=== PATIENT | female | born 1925 | race Caucasian/White ===

== ENCOUNTER → 2016-08-19 | Outpatient (CLI) | payer MEDICARE, OTHER ==
[~2016-08-19] MED LIST: ACET-1757 PO; ACID1TAB3 PO; ALLO100T64 PO; ALLO300T42; AMLO5TAB4 PO; ASPI-496 PO; ASPI-515 PO; ASPI325T80 PO; ATOR80TA75 PO; AZIT-14 PO; BUDE10.2; CARV3.1212 PO; CEFD300C2 PO; CEPH-376 PO; CIPR250T2 PO; CIPR500T3 PO; ERGO500017 PO; FERR325T20 PO; FLUT1AER INH; GABA100C8 PO; HYDR1TAB12 PO; INSU100C5 SQ-INSULIN; LEVO100C2; LOSARTIN; METH4TAB2 PO; OXYC5CAP4 PO; OXYC5TAB3 PO; PANT40TA3 PO; POTA20TA91 PO; SENN8.6T98 PO; VIT1TABL32 PO; [UNRECOGNIZED DRUG - REMARK] PO
== END | disposition home or self-care (01) ==
LOC: CFH 11:49
PROVIDERS: ATTEND Nurse Practitioner Primary Care
DX: I51.7 Cardiomegaly (principal); K46.9 Unspecified abdominal hernia without obstruction or gangrene
CPT/HCPCS: 71020

== ENCOUNTER → 2016-09-04 | Outpatient (CLI) | payer MEDICARE, OTHER | END | disposition home or self-care (01) | LOC: CFH 13:15 | PROVIDERS: ATTEND Internal Medicine Cardiovascular Disease | DX: I10 Essential (primary) hypertension (principal) | CPT/HCPCS: 93306 ==

== ENCOUNTER 2016-11-21 09:16 | Inpatient (IN) | payer MEDICARE, OTHER ==
[~2016-11-21] VITALS: Ht 165.1 cm; Wt 60.0 kg
[~2016-11-21 09:16] MED LIST changes: -AZIT-14 PO; +AZIT250T89 PO; -CEFD300C2 PO; +CEFD300C37 PO; +GABA-826 PO; -GABA100C8 PO
[2016-11-21] MEDS ORDERED: SODIUM CHLORIDE 0.9% 1,000ML IVBOLUS ONE (09:30)
[2016-11-21] MEDS ORDERED: SODIUM CHLORIDE FLUSH 10ML SYR IVF ONE (09:30)
[2016-11-21 10:21] LABS: ASPARTATE AMINO TRANSFERASE 8 U/L (15-37); BLOOD UREA NITROGEN 64 mg/dL (7-18)
[2016-11-21 10:49] LABS: DIFF TOTAL CELLS COUNTED 100 CELL DIFF
[2016-11-21 10:50] LABS: ANISOCYTOSIS 2+
[2016-11-21 10:51] LABS: OVALOCYTES 1+
[2016-11-21 10:53] LABS: MICROCYTOSIS 1+
[2016-11-21 10:54] LABS: VERIFY COUNTS? YES
[2016-11-21] MEDS ORDERED: SODIUM CHLORIDE 0.9% 1,000 ML IV ONE (13:40)
[2016-11-21] MEDS ORDERED: ONDANSETRON 2MG/ML, 2ML IVPush PRN (14:00)
[2016-11-21] MEDS ORDERED: hydrALAzine 20 MG/ML, 1ML IVPush PRN (14:00)
[2016-11-21] MEDS ORDERED: morphine SULFATE 10 MG/ML, 1ML IVPush PRN (14:00)
[2016-11-21 14:30] VITALS: BP 130/72
[2016-11-21] MEDS: CEFTRIAXONE PMX 1GM/50ML 50 ML IV SCH (16:00)
[2016-11-21] MEDS: PANTOPROZOLE 40MG TABLET PO SCH (16:00)
[2016-11-21] MEDS: HEPARIN 5,000 UNITS/ML, 1ML SQ SCH (16:01)
[2016-11-21] MEDS: FERROUS SULFATE 325 MG TABLET PO SCH (16:01)
[2016-11-21] MEDS: GABAPENTIN 100 MG CAPSULE PO SCH ×2 (16:01→21:28)
[2016-11-21] MEDS: CARVEDILOL 3.125 MG TABLET PO SCH (17:02)
[2016-11-21 19:21] VITALS: BP 120/73
[2016-11-21] MEDS: VIT A C PO SCH (21:00)
[2016-11-21] MEDS: LUTEIN PO SCH (21:00)
[2016-11-21] MEDS: [UNRECOGNIZED DRUG - OTHER] PO SCH (21:00)
[2016-11-21] MEDS: MINERALS PO SCH (21:00)
[2016-11-21] MEDS ORDERED: TEMAZEPAM 15 MG CAPSULE PO PRN (21:00)
[2016-11-21] MEDS: ATORVASTATIN 80 MG TABLET PO SCH (21:28)
[2016-11-22] MEDS: HEPARIN 5,000 UNITS/ML, 1ML SQ SCH ×3 (00:03→17:50)
[2016-11-22 02:46] VITALS: BP 128/63
[2016-11-22 05:34] LABS: BLOOD UREA NITROGEN 60 mg/dL (7-18)
[2016-11-22 05:47] LABS: ASPARTATE AMINO TRANSFERASE 7 U/L (15-37)
[2016-11-22] MEDS: CARVEDILOL 3.125 MG TABLET PO SCH ×2 (05:58→17:51)
[2016-11-22 07:21] VITALS: BP 103/64
[2016-11-22] MEDS: PANTOPROZOLE 40MG TABLET PO SCH ×2 (09:11→17:49)
[2016-11-22] MEDS: FERROUS SULFATE 325 MG TABLET PO SCH ×2 (09:11→17:49)
[2016-11-22] MEDS: GABAPENTIN 100 MG CAPSULE PO SCH ×3 (09:12→21:12)
[2016-11-22] MEDS: ASPIRIN 325 MG TABLET EC PO SCH (09:13)
[2016-11-22] MEDS: GUAIFENESIN ER 600 MG TABLET PO SCH ×2 (12:54→21:12)
[2016-11-22 14:55] VITALS: BP 121/64
[2016-11-22] MEDS: CEFTRIAXONE PMX 1GM/50ML 50 ML IV SCH (15:59)
[2016-11-22 19:54] VITALS: BP 112/66
[2016-11-22] MEDS: VIT A C PO SCH (21:00)
[2016-11-22] MEDS: LUTEIN PO SCH (21:00)
[2016-11-22] MEDS: [UNRECOGNIZED DRUG - OTHER] PO SCH (21:00)
[2016-11-22] MEDS: MINERALS PO SCH (21:00)
[2016-11-22] MEDS: ATORVASTATIN 80 MG TABLET PO SCH (21:12)
[2016-11-23] MEDS: HEPARIN 5,000 UNITS/ML, 1ML SQ SCH ×3 (00:20→17:10)
[2016-11-23 03:57] VITALS: BP 102/62
[2016-11-23 05:23] LABS: BLOOD UREA NITROGEN 54 mg/dL (7-18)
[2016-11-23] MEDS: CARVEDILOL 3.125 MG TABLET PO SCH ×2 (05:50→17:09)
[2016-11-23 07:42] VITALS: BP 122/62
[2016-11-23] MEDS: ASPIRIN 325 MG TABLET EC PO SCH (09:20)
[2016-11-23] MEDS: PANTOPROZOLE 40MG TABLET PO SCH ×2 (09:21→17:09)
[2016-11-23] MEDS: GUAIFENESIN ER 600 MG TABLET PO SCH ×2 (09:21→21:57)
[2016-11-23] MEDS: GABAPENTIN 100 MG CAPSULE PO SCH ×3 (09:21→21:57)
[2016-11-23] MEDS: FERROUS SULFATE 325 MG TABLET PO SCH ×2 (09:22→17:10)
[2016-11-23 13:30] VITALS: BP 125/61
[2016-11-23] MEDS: CEFTRIAXONE PMX 1GM/50ML 50 ML IV SCH (15:13)
[2016-11-23] MEDS: ACETAMINOPHEN 325 MG TABLET PO PRN (18:40)
[2016-11-23 19:54] VITALS: BP 128/66
[2016-11-23] MEDS: VIT A C PO SCH (21:00)
[2016-11-23] MEDS: [UNRECOGNIZED DRUG - OTHER] PO SCH (21:00)
[2016-11-23] MEDS: MINERALS PO SCH (21:00)
[2016-11-23] MEDS: LUTEIN PO SCH (21:00)
[2016-11-23] MEDS: ATORVASTATIN 80 MG TABLET PO SCH (21:57)
[2016-11-24] MEDS: HEPARIN 5,000 UNITS/ML, 1ML SQ SCH ×4 (00:05→23:40)
[2016-11-24 01:34] VITALS: BP 121/62
[2016-11-24 05:38] LABS: BLOOD UREA NITROGEN 52 mg/dL (7-18)
[2016-11-24] MEDS: CARVEDILOL 3.125 MG TABLET PO SCH ×2 (05:48→17:33)
[2016-11-24 07:29] VITALS: BP 106/59
[2016-11-24] MEDS: FERROUS SULFATE 325 MG TABLET PO SCH ×2 (08:23→17:33)
[2016-11-24] MEDS: PANTOPROZOLE 40MG TABLET PO SCH ×2 (08:23→17:33)
[2016-11-24] MEDS: ASPIRIN 325 MG TABLET EC PO SCH (08:23)
[2016-11-24] MEDS: GUAIFENESIN ER 600 MG TABLET PO SCH ×2 (08:23→22:24)
[2016-11-24] MEDS: GABAPENTIN 100 MG CAPSULE PO SCH ×3 (08:23→22:24)
[2016-11-24] MEDS: ACETAMINOPHEN 325 MG TABLET PO PRN ×2 (08:33→22:25)
[2016-11-24 13:40] VITALS: BP 125/73
[2016-11-24] MEDS: CEFTRIAXONE PMX 1GM/50ML 50 ML IV SCH (17:32)
[2016-11-24 19:18] VITALS: BP 129/78
[2016-11-24] MEDS: VIT A C PO SCH (21:00)
[2016-11-24] MEDS: MINERALS PO SCH (21:00)
[2016-11-24] MEDS: LUTEIN PO SCH (21:00)
[2016-11-24] MEDS: [UNRECOGNIZED DRUG - OTHER] PO SCH (21:00)
[2016-11-24] MEDS: ATORVASTATIN 80 MG TABLET PO SCH (22:24)
[2016-11-25 01:10] VITALS: BP 119/66
[2016-11-25] MEDS: CARVEDILOL 3.125 MG TABLET PO SCH (05:52)
[2016-11-25 07:59] VITALS: BP 115/62
[2016-11-25] MEDS: FERROUS SULFATE 325 MG TABLET PO SCH ×2 (09:20→16:18)
[2016-11-25] MEDS: HEPARIN 5,000 UNITS/ML, 1ML SQ SCH ×2 (09:20→16:18)
[2016-11-25] MEDS: ASPIRIN 325 MG TABLET EC PO SCH (09:20)
[2016-11-25] MEDS: GUAIFENESIN ER 600 MG TABLET PO SCH (09:20)
[2016-11-25] MEDS: GABAPENTIN 100 MG CAPSULE PO SCH ×2 (09:20→15:23)
[2016-11-25] MEDS: PANTOPROZOLE 40MG TABLET PO SCH ×2 (09:20→16:18)
[2016-11-25 13:52] VITALS: BP 138/65
[2016-11-25] MEDS: CEFTRIAXONE PMX 1GM/50ML 50 ML IV SCH (15:23)
[2016-11-25] MEDS ORDERED: TEMA15CA6 PO (15:43)
[2016-11-25] MEDS ORDERED: TRAM50TA2 PO (15:43)
[2016-11-25] MEDS ORDERED: CEFD300C37 PO (15:43)
[2016-11-25] MEDS ORDERED: GUAI600T22 PO (15:43)
[2016-11-25] MEDS ORDERED: LACT1CAP24 PO (15:44)
== END 2016-11-25 17:00 | DRG 871 ==
LOC: ED 10:11 → EDIP 10:49 → 3NE 12:15
PROVIDERS: ADMIT Hospitalist; ATTEND Hospitalist
DX: A41.51 Sepsis due to Escherichia coli [E. coli] (principal); N17.0 Acute kidney failure with tubular necrosis; N17.9 Acute kidney failure, unspecified; N39.0 Urinary tract infection, site not specified; I24.9 Acute ischemic heart disease, unspecified; I50.40 Unspecified combined systolic (congestive) and diastolic (congestive) heart failure; E03.9 Hypothyroidism, unspecified; E11.22 Type 2 diabetes mellitus with diabetic chronic kidney disease; I25.10 Atherosclerotic heart disease of native coronary artery without angina pectoris; I48.0 Paroxysmal atrial fibrillation; E11.51 Type 2 diabetes mellitus with diabetic peripheral angiopathy without gangrene; M10.9 Gout, unspecified; N18.3 Chronic kidney disease, stage 3 (moderate); W18.39XA Other fall on same level, initial encounter; I25.2 Old myocardial infarction; Z87.440 Personal history of urinary (tract) infections; Y93.89 Activity, other specified; Y92.89 Other specified places as the place of occurrence of the external cause; Y99.8 Other external cause status; Z66 Do not resuscitate
CPT/HCPCS: 36415; 71010; 80048; 80053; 81001; 82010; 82533; 83605; 83735; 84100; 84443; 85025; 87040; 87077; 87086; 87186; 87324; 89055; 93005; 99291; J0696; J1644; J7030

== ENCOUNTER 2017-04-01 20:03 | Inpatient (IN) | payer MEDICARE, OTHER ==
[~2017-04-01] VITALS: Ht 170.2 cm; Wt 63.1 kg
[~2017-04-01 20:03] MED LIST changes: -ALLO300T42; +ALLO300T80; +ATOR-2 PO; -ATOR80TA75 PO; +FERR325T18 PO; -FERR325T20 PO; +GUAI600T31 PO; +LACT1CAP24 PO; -LEVO100C2; +LEVO100C2 PO; +OXYC5CAP2 PO; -OXYC5CAP4 PO; +TEMA15CA6 PO; +TRAM50TA2 PO
[2017-04-01] MEDS ORDERED: POTA20TA89 PO (21:20)
[2017-04-01] MEDS ORDERED: ATOR40TA PO (21:20)
[2017-04-01] MEDS ORDERED: FURO20TA3 PO (21:20)
[2017-04-01] MEDS ORDERED: LEVO100T5 PO (21:20)
[2017-04-01] MEDS ORDERED: PANT40TA5 PO (21:20)
[2017-04-01] MEDS ORDERED: ASCO500T8 PO (21:20)
[2017-04-01] MEDS ORDERED: GABA300C10 PO (21:20)
[2017-04-01] MEDS ORDERED: OXYB5TAB7 PO (21:20)
[2017-04-01] MEDS ORDERED: SODIUM CHLORIDE FLUSH 10ML SYR IVF ONE (21:30)
[2017-04-01] MEDS ORDERED: SODIUM CHLORIDE 0.9% 1,000ML IVBOLUS ONE (21:30)
[2017-04-01 21:56] LABS: HEMATOCRIT 34.8 % (34.6-47.8); HEMOGLOBIN 11.7 g/dL (11.7-16.4); WHITE BLOOD COUNT 11.9 x10^3/uL (3.4-10)
[2017-04-01 22:08] LABS: ASPARTATE AMINO TRANSFERASE 15 U/L (15-37); BLOOD UREA NITROGEN 54 mg/dL (7-18)
[2017-04-01] MEDS ORDERED: CEFTRIAXONE PMX 1GM/50ML 50 ML IV ONE (22:30)
[2017-04-01] MEDS ORDERED: SODIUM CHLORIDE 0.9% 1,000 ML IV SCH (22:36)
[2017-04-01] MEDS ORDERED: CEFTRIAXONE PMX 1GM/50ML 50 ML ONE (22:55)
[2017-04-01] MEDS: FAMOTIDINE 20 MG TABLET PO SCH (23:00)
[2017-04-01] MEDS ORDERED: DOCUSATE 100 MG CAPSULE PO PRN (23:00)
[2017-04-01] MEDS ORDERED: DEXTROSE 4 GM TAB.CHEW PO PRN (23:00)
[2017-04-01] MEDS ORDERED: HYDROcodone/APAP 5/325 TABLET PO PRN (23:00)
[2017-04-01] MEDS ORDERED: ENOXAPARIN 40 MG/0.4 ML SQ SCH (23:00)
[2017-04-01] MEDS ORDERED: DEXTROSE 50%, 50ML SYRINGE IVPush PRN (23:00)
[2017-04-01] MEDS ORDERED: morphine SULFATE 10 MG/ML, 1ML IVPush PRN (23:00)
[2017-04-01] MEDS ORDERED: ACETAMINOPHEN 325 MG TABLET PO PRN (23:00)
[2017-04-01] MEDS ORDERED: POLYETHYLENE GLYCOL 17 GM PACKET PO PRN (23:00)
[2017-04-01] MEDS ORDERED: ONDANSETRON 2MG/ML, 2ML IVPush PRN (23:00)
[2017-04-01] MEDS ORDERED: GLUCAGON 1 MG IM PRN (23:00)
[2017-04-01] MEDS: CEFTRIAXONE PMX 1GM/50ML 50 ML IV SCH (23:02)
[2017-04-02 00:02] VITALS: BP 124/74
[2017-04-02 00:28] VITALS: BP 124/74
[2017-04-02 05:47] LABS: BLOOD UREA NITROGEN 50 mg/dL (7-18)
[2017-04-02] MEDS: CARVEDILOL 3.125 MG TABLET PO SCH ×2 (06:00→18:39)
[2017-04-02 06:35] VITALS: BP 123/64
[2017-04-02] MEDS: INSULIN ASPART 100 UNITS/ML, PEN SQ-INSULIN SCH ×4 (07:00→21:00)
[2017-04-02] MEDS: SODIUM CHLORIDE FLUSH 10ML SYR IVF SCH ×2 (09:00→22:34)
[2017-04-02] MEDS: OXYBUTYNIN CHLORIDE 5 MG TABLET PO SCH ×2 (09:31→22:33)
[2017-04-02] MEDS: FAMOTIDINE 20 MG TABLET PO SCH ×2 (09:31→22:33)
[2017-04-02] MEDS: SENNA/DOCUSATE TABLET PO SCH (09:32)
[2017-04-02] MEDS: LEVOTHYROXINE 100 MCG TABLET PO SCH (09:32)
[2017-04-02] MEDS: GABAPENTIN 300 MG CAPSULE PO SCH ×3 (09:32→22:33)
[2017-04-02 13:20] VITALS: BP 104/62
[2017-04-02 19:28] VITALS: BP 107/62
[2017-04-02] MEDS: CEFTRIAXONE PMX 1GM/50ML 50 ML IV SCH (22:33)
[2017-04-02] MEDS: ATORVASTATIN 40 MG TABLET PO SCH (22:33)
[2017-04-03 00:59] VITALS: BP 120/69
[2017-04-03 05:38] LABS: BLOOD UREA NITROGEN 42 mg/dL (7-18)
[2017-04-03] MEDS: ENOXAPARIN 30 MG/0.3 ML SQ SCH (05:57)
[2017-04-03] MEDS: CARVEDILOL 3.125 MG TABLET PO SCH ×2 (06:00→17:42)
[2017-04-03 06:58] VITALS: BP 94/60
[2017-04-03] MEDS: INSULIN ASPART 100 UNITS/ML, PEN SQ-INSULIN SCH ×4 (07:00→21:00)
[2017-04-03] MEDS: SODIUM CHLORIDE FLUSH 10ML SYR IVF SCH ×2 (08:28→23:34)
[2017-04-03] MEDS: LEVOTHYROXINE 100 MCG TABLET PO SCH (09:11)
[2017-04-03] MEDS: SENNA/DOCUSATE TABLET PO SCH (09:11)
[2017-04-03] MEDS: FAMOTIDINE 20 MG TABLET PO SCH ×2 (09:11→23:33)
[2017-04-03] MEDS: OXYBUTYNIN CHLORIDE 5 MG TABLET PO SCH ×2 (09:11→23:34)
[2017-04-03] MEDS: GABAPENTIN 300 MG CAPSULE PO SCH ×3 (09:11→23:34)
[2017-04-03 17:04] VITALS: BP 91/58
[2017-04-03 19:08] VITALS: BP 85/56
[2017-04-03] MEDS ORDERED: GLUCAGON 1 MG IM PRN (20:00)
[2017-04-03] MEDS ORDERED: POLYETHYLENE GLYCOL 17 GM PACKET PO PRN (20:00)
[2017-04-03] MEDS ORDERED: DOCUSATE 100 MG CAPSULE PO PRN (20:00)
[2017-04-03] MEDS ORDERED: DEXTROSE 4 GM TAB.CHEW PO PRN (20:00)
[2017-04-03] MEDS ORDERED: ONDANSETRON 2MG/ML, 2ML IVPush PRN (20:00)
[2017-04-03] MEDS ORDERED: DEXTROSE 50%, 50ML SYRINGE IVPush PRN (20:00)
[2017-04-03] MEDS ORDERED: ACETAMINOPHEN 325 MG TABLET PO PRN (20:00)
[2017-04-03] MEDS ORDERED: FAMOTIDINE 20 MG TABLET PO SCH (21:00)
[2017-04-03] MEDS: CEFTRIAXONE PMX 1GM/50ML 50 ML IV SCH (23:33)
[2017-04-03] MEDS: ATORVASTATIN 40 MG TABLET PO SCH (23:34)
[2017-04-04 01:10] VITALS: BP 133/85
[2017-04-04] MEDS: CARVEDILOL 3.125 MG TABLET PO SCH ×2 (06:00→17:29)
[2017-04-04] MEDS: ENOXAPARIN 30 MG/0.3 ML SQ SCH (06:15)
[2017-04-04] MEDS: INSULIN ASPART 100 UNITS/ML, PEN SQ-INSULIN SCH ×4 (07:00→20:46)
[2017-04-04 07:24] VITALS: BP 100/67
[2017-04-04] MEDS: SODIUM CHLORIDE FLUSH 10ML SYR IVF SCH ×2 (09:00→20:47)
[2017-04-04] MEDS: LEVOTHYROXINE 100 MCG TABLET PO SCH (09:50)
[2017-04-04] MEDS: SENNA/DOCUSATE TABLET PO SCH (09:50)
[2017-04-04] MEDS: OXYBUTYNIN CHLORIDE 5 MG TABLET PO SCH ×2 (09:50→20:47)
[2017-04-04] MEDS: GABAPENTIN 300 MG CAPSULE PO SCH ×3 (09:51→20:47)
[2017-04-04 13:36] VITALS: BP 108/61
[2017-04-04 19:04] LABS: BLOOD UREA NITROGEN 37 mg/dL (7-18)
[2017-04-04 19:23] VITALS: BP 89/42
[2017-04-04] MEDS: FAMOTIDINE 20 MG TABLET PO SCH (20:47)
[2017-04-04] MEDS: ATORVASTATIN 40 MG TABLET PO SCH (20:47)
[2017-04-04 20:50] VITALS: BP 127/54
[2017-04-05] MEDS: CEFTRIAXONE PMX 1GM/50ML 50 ML IV SCH (00:34)
[2017-04-05 01:34] VITALS: BP 114/62
[2017-04-05] MEDS: CARVEDILOL 3.125 MG TABLET PO SCH (04:51)
[2017-04-05] MEDS: ENOXAPARIN 30 MG/0.3 ML SQ SCH (05:13)
[2017-04-05] MEDS: INSULIN ASPART 100 UNITS/ML, PEN SQ-INSULIN SCH ×3 (07:00→16:00)
[2017-04-05 07:30] VITALS: BP 160/67
[2017-04-05] MEDS: SENNA/DOCUSATE TABLET PO SCH (09:00)
[2017-04-05] MEDS: GABAPENTIN 300 MG CAPSULE PO SCH ×2 (09:52→16:49)
[2017-04-05] MEDS: OXYBUTYNIN CHLORIDE 5 MG TABLET PO SCH (09:52)
[2017-04-05] MEDS: LEVOTHYROXINE 100 MCG TABLET PO SCH (09:53)
[2017-04-05] MEDS: SODIUM CHLORIDE FLUSH 10ML SYR IVF SCH (09:54)
[2017-04-05] MEDS ORDERED: TRAM50TA2 PO (11:30)
[2017-04-05] MEDS ORDERED: ASPI-496 PO (11:35)
[2017-04-05 13:30] VITALS: BP 124/69
== END 2017-04-05 17:25 | DRG 682 ==
LOC: SUATTDRO 22:29 → ED 22:50 → EDIP 23:01 → 3NE 23:43
PROVIDERS: ADMIT Family Medicine; ATTEND Internal Medicine
PROC: 0T9B70Z Drainage of Bladder with Drainage Device, Via Natural or Artificial Opening (ICD-10-PCS; principal; 2017-04-01)
DX: N17.0 Acute kidney failure with tubular necrosis (principal); E43 Unspecified severe protein-calorie malnutrition; E11.22 Type 2 diabetes mellitus with diabetic chronic kidney disease; E11.51 Type 2 diabetes mellitus with diabetic peripheral angiopathy without gangrene; I50.42 Chronic combined systolic (congestive) and diastolic (congestive) heart failure; I48.0 Paroxysmal atrial fibrillation; N30.91 Cystitis, unspecified with hematuria; E86.0 Dehydration; I25.10 Atherosclerotic heart disease of native coronary artery without angina pectoris; D50.9 Iron deficiency anemia, unspecified; E03.9 Hypothyroidism, unspecified; N18.9 Chronic kidney disease, unspecified; J45.909 Unspecified asthma, uncomplicated; K21.9 Gastro-esophageal reflux disease without esophagitis; M10.9 Gout, unspecified; Z66 Do not resuscitate; Z82.49 Family history of ischemic heart disease and other diseases of the circulatory system; Z87.440 Personal history of urinary (tract) infections; Z68.21 Body mass index [BMI] 21.0-21.9, adult
CPT/HCPCS: 36415; 80048; 80053; 81001; 82040; 82962; 83036; 83735; 84443; 85025; 87086; 96365; J0696; J1650; J7030